=== PATIENT | male | born 1990 | race African-American/Black ===

== ENCOUNTER 2025-07-19 18:03 | Emergency (ER) | payer MEDICAID ==
[~2025-07-19] VITALS: Ht 188 cm; Wt 145.0 kg
[2025-07-19 19:08] LABS: PLATELET COUNT (AUTO) 210 K/uL (150-450); RED BLOOD CELL COUNT(AUTO) 5.39 MIL/uL (4.50-5.90); RED CELL DISTRIBUTION WIDTH 14.2 % (11.5-14.5); WHITE BLOOD COUNT (AUTO) 8.2 K/uL (4.5-11.0)
[2025-07-19 19:15] LABS: CALCIUM, TOTAL 9.1 mg/dL (8.8-10.5); CREATININE 1.26 mg/dL (0.60-1.30); GLOMERULAR FILTR. RATE CALC > 60 mL/min (>60); GLUCOSE,RANDOM 101 mg/dL (70-110); SODIUM SERUM 141 mmol/L (136-145); UREA NITROGEN, BLOOD 13 mg/dL (7-18)
[2025-07-19 19:29] VITALS: TEMP 97.9
[2025-07-19 20:02] LABS: COVID AG,FIA SOURCE NASAL SWAB
[2025-07-19 20:16] LABS: PH,URINE DRUG SCREEN 5.5 (5.0-8.0)
[2025-07-19 20:19] LABS: ALCOHOL, URINE DRUG SCREEN NEGATIVE (NEGATIVE); AMPHET/METH SCREEN,URINE NEGATIVE (NEGATIVE); BARBITURATE SCREEN, URINE NEGATIVE (NEGATIVE); CANNABINOID SCREEN,URINE NEGATIVE (NEGATIVE); COCAINE SCREEN,URINE NEGATIVE (NEGATIVE); METHADONE SCREEN, URINE NEGATIVE (NEGATIVE)
[2025-07-19 20:21] LABS: SARS-COV2 (COVID) ANTIGEN,FIA Negative (Negative)
[2025-07-19 21:35] VITALS: BP 138/97; PULSE 108; RESP 18; O2SAT 98
== END 2025-07-19 21:45 | disposition home or self-care (01) ==
LOC: EMS 18:03
DX: F25.9 Schizoaffective disorder, unspecified (principal); I10 Essential (primary) hypertension; F41.9 Anxiety disorder, unspecified; Z20.822 Contact with and (suspected) exposure to COVID-19
CPT/HCPCS: 99284; 87426; 80048; 85025; 36415; 80307; G0480

== ENCOUNTER 2025-08-08 00:09 | Emergency (ER) | payer MEDICAID ==
[~2025-08-08] VITALS: Ht 185.4 cm; Wt 100.0 kg
[2025-08-08 00:12] VITALS: BP 108/78; PULSE 96; RESP 18; TEMP 98.1; O2SAT 96
[2025-08-08 00:50] LABS: APPEARANCE,URINE CLEAR (CLEAR); GLUCOSE, URINE (UA) NEGATIVE (NEGATIVE); LEUKOCYTE ESTERASE ,URINE NEGATIVE (NEGATIVE); NITRATE,URINE NEGATIVE (NEGATIVE); OCCULT BLOOD,URINE NEGATIVE (NEGATIVE); PH,URINE DRUG SCREEN 5.5 (5.0-8.0); SPECIFIC GRAVITIY, URINE 1.027 (1.003-1.030)
[2025-08-08 00:56] LABS: ALCOHOL, URINE DRUG SCREEN NEGATIVE (NEGATIVE); AMPHET/METH SCREEN,URINE NEGATIVE (NEGATIVE); BARBITURATE SCREEN, URINE NEGATIVE (NEGATIVE); CANNABINOID SCREEN,URINE NEGATIVE (NEGATIVE); COCAINE SCREEN,URINE NEGATIVE (NEGATIVE); METHADONE SCREEN, URINE NEGATIVE (NEGATIVE)
[2025-08-08 01:06] LABS: COVID AG,FIA SOURCE NASAL SWAB; SARS-COV2 (COVID) ANTIGEN,FIA Negative (Negative)
[2025-08-08 01:12] LABS: PLATELET COUNT (AUTO) 186 K/uL (150-450); RED BLOOD CELL COUNT(AUTO) 5.17 MIL/uL (4.50-5.90); RED CELL DISTRIBUTION WIDTH 14.4 % (11.5-14.5); WHITE BLOOD COUNT (AUTO) 8.0 K/uL (4.5-11.0)
[2025-08-08 01:21] LABS: CALCIUM, TOTAL 9.2 mg/dL (8.8-10.5); CREATININE 0.99 mg/dL (0.60-1.30); GLOMERULAR FILTR. RATE CALC > 60 mL/min (>60); GLUCOSE,RANDOM 104 mg/dL (70-110); SODIUM SERUM 139 mmol/L (136-145); UREA NITROGEN, BLOOD 17 mg/dL (7-18)
[2025-08-08] MEDS: LORazepam 2 MG/ML VIAL IM ONE (02:33)
== END 2025-08-08 06:59 | disposition home or self-care (01) ==
LOC: EMS 00:11
DX: F25.9 Schizoaffective disorder, unspecified (principal); F31.9 Bipolar disorder, unspecified; F41.9 Anxiety disorder, unspecified; Z20.822 Contact with and (suspected) exposure to COVID-19
CPT/HCPCS: 99284; 87426; 80048; 81003; 85025; 36415; 96372; 80307; G0480; J1200; J1630; J2060

== ENCOUNTER 2025-08-10 04:35 | Emergency (ER) | payer MEDICAID ==
[~2025-08-10] VITALS: Ht 190.5 cm; Wt 104.5 kg
[2025-08-10 04:36] VITALS: TEMP 97.7
[2025-08-10] MEDS ORDERED: ZOLPIDEM TARTRATE 10 MG TABLET PO PRN (06:30)
[2025-08-10 06:47] LABS: PLATELET COUNT (AUTO) 190 K/uL (150-450); RED BLOOD CELL COUNT(AUTO) 5.36 MIL/uL (4.50-5.90); RED CELL DISTRIBUTION WIDTH 14.2 % (11.5-14.5); WHITE BLOOD COUNT (AUTO) 7.8 K/uL (4.5-11.0)
[2025-08-10 06:56] LABS: CALCIUM, TOTAL 9.6 mg/dL (8.8-10.5); CREATININE 0.96 mg/dL (0.60-1.30); GLOMERULAR FILTR. RATE CALC > 60 mL/min (>60); GLUCOSE,RANDOM 103 mg/dL (70-110); SODIUM SERUM 138 mmol/L (136-145); UREA NITROGEN, BLOOD 12 mg/dL (7-18)
[2025-08-10 07:01] LABS: ASPARTATE AMINOTRANSFERASE 69 U/L (15-37); TOTAL PROTEIN, SERUM 7.8 g/dL (6.4-8.2)
[2025-08-10 07:06] LABS: ALCOHOL, BLOOD (SERUM) < 3 mg/dL (0-10)
[2025-08-10 08:52] LABS: COVID AG,FIA SOURCE NASAL SWAB
[2025-08-10 09:22] LABS: SARS-COV2 (COVID) ANTIGEN,FIA Negative (Negative)
[2025-08-10 10:24] LABS: APPEARANCE,URINE HAZY (CLEAR); GLUCOSE, URINE (UA) NEGATIVE (NEGATIVE); LEUKOCYTE ESTERASE ,URINE NEGATIVE (NEGATIVE); NITRATE,URINE NEGATIVE (NEGATIVE); OCCULT BLOOD,URINE NEGATIVE (NEGATIVE); PH,URINE DRUG SCREEN 5.5 (5.0-8.0); SPECIFIC GRAVITIY, URINE 1.008 (1.003-1.030)
[2025-08-10 10:29] LABS: ALCOHOL, URINE DRUG SCREEN NEGATIVE (NEGATIVE); AMPHET/METH SCREEN,URINE NEGATIVE (NEGATIVE); BARBITURATE SCREEN, URINE NEGATIVE (NEGATIVE); CANNABINOID SCREEN,URINE NEGATIVE (NEGATIVE); COCAINE SCREEN,URINE NEGATIVE (NEGATIVE); METHADONE SCREEN, URINE NEGATIVE (NEGATIVE)
[2025-08-10 13:45] VITALS: BP 108/64; PULSE 67; RESP 18; O2SAT 98
== END 2025-08-10 14:12 ==
LOC: EMS 04:35
DX: F25.1 Schizoaffective disorder, depressive type (principal); F41.9 Anxiety disorder, unspecified; E11.9 Type 2 diabetes mellitus without complications; I10 Essential (primary) hypertension; R45.1 Restlessness and agitation; Z20.822 Contact with and (suspected) exposure to COVID-19
CPT/HCPCS: 99285; 87426; 80048; 80076; 81003; 82962; 85025; 36415; 80307; G0480